=== PATIENT | female | born 1990 | race Caucasian/White ===

== ENCOUNTER 2018-10-27 16:42 | Emergency (ER) | payer OTHER ==
[2018-10-27 17:15] LABS: BASOPHILS % (AUTO) 0.4 %; EOSINOPHILS % (AUTO) 0.3 %; HGB - HEMOGLOBIN 13.7 g/dL (12.0-16.0); LYMPHOCYTES # (AUTO) 1.6 10^3/uL (1.5-3.5); MEAN CORPUSCULAR HEMOGLOBIN 31.4 pg (27.0-31.0); MEAN PLATELET VOLUME 9.1 fL (7.9-10.8); MONOCYTES # (AUTO) 0.5 10^3/uL (0.0-1.0); MONOCYTES % (AUTO) 5.7 %; NEUTROPHILS # (AUTO) 7.4 10^3/uL (1.5-6.6); NEUTROPHILS % (AUTO) 76.6 %; PLT - PLATELET COUNT 175 10^3/uL (130-450); RED BLOOD COUNT 4.38 10^6/uL (4.20-5.40); RED CELL DISTRIBUTION WIDTH 13.1 % (12.0-15.0); WHITE BLOOD COUNT 9.6 x10^3/uL (4.8-10.8)
[2018-10-27 17:28] LABS: ALBUMIN 3.8 g/dL (3.2-5.5); BILIRUBIN,TOTAL 0.7 mg/dL (0.2-1.0); CALCIUM 8.6 mg/dL (8.5-10.3); TOTAL PROTEIN 7.7 g/dL (6.7-8.2)
[2018-10-27] MEDS ORDERED: HYDROmorphone 1 MG/ML CARPUJECT IVP STA (17:45)
[2018-10-27] MEDS ORDERED: KETOROLAC 30 MG/ML VIAL IVP STA (17:45)
[2018-10-27] MEDS ORDERED: ONDANSETRON 4 MG/2 ML VIAL IVP STA (17:45)
[2018-10-27 17:46] LABS: BILIRUBIN,URINE NEGATIVE (NEGATIVE); GLUCOSE, URINE (UA) NEGATIVE (NEGATIVE); KETONES,URINE (UA) NEGATIVE (NEGATIVE); LEUKOCYTE ESTERASE, URINE TRACE (NEGATIVE); NITRITE,URINE NEGATIVE (NEGATIVE); OCCULT BLOOD,URINE MODERATE (NEGATIVE); PROTEIN,URINE NEGATIVE (NEGATIVE); UROBILINOGEN,URINE 0.2 (NORMAL) E.U./dL (NORMAL)
--- NOTE | 2018-10-27 17:46 | ED Physician Documentation ---
PD HPI ABD PAIN - Stated complaint Stated Complaint: ABDOMINAL PX - Chief complaint Chief Complaint: Abd Pain - History obtained from History obtained from: Patient - History of Present Illness Timing - onset: Today (This is a 27-year-old woman who is 3 weeks from her third child who developed sudden onset epigastric and right upper quadrant pain radiating to the mid back today about 2 hours ago with nausea but no vomiting. She had been constipated but had a normal bowel movement earlier today. No history of abdominal surgeries.) Review of Systems Ten Systems: 10 systems reviewed and negative Constitutional: reports: Sweats. denies: Fever, Chills GI: reports: Abdominal Pain, Nausea. denies: Vomiting, Diarrhea PD PAST MEDICAL HISTORY - Past Medical History Past Medical History: No - Past Surgical History Past Surgical History: No - Present Medications Home Medications: Ambulatory Orders Medication Instructions Recorded Confirmed Hydrocodone/Acetaminophen 1 - 2 each PO Q6H PRN #14 tablet 10/27/18 [Hydrocodon-Acetaminophen 5-325] - Allergies Allergies/Adverse Reactions: Allergies Allergy/AdvReac Type Severity Reaction Status Date / Time No Known Drug Allergies Allergy Verified 10/27/18 16:53 - Social History Does the pt have substance abuse?: No - Family History Family history: reports: Non contributory PD ED PE NORMAL - Vitals Vital signs reviewed: Yes - General General: Alert and oriented X 3, No acute distress - HEENT HEENT: PERRL, EOMI - Neck Neck: Supple, no meningeal sign, No bony TTP - Cardiac Cardiac: RRR, No murmur - Respiratory Respiratory: No respiratory distress, Clear bilaterally - Abdomen Abdomen: Other (Tender in the right upper quadrant without guarding or rebound b ut positive Moore sign.) - Back Back: No CVA TTP, No spinal TTP - Derm Derm: Normal color, Warm and dry - Extremities Extremities: No edema - Neuro Neuro: Alert and oriented X 3 - Psych Psych: Normal mood, Normal affect Results - Vitals Vitals: Vital Signs - 24 hr 10/27/18 10/27/18 16:50 19:10 Temperature 36.5 C Heart Rate 67 60 Respiratory 18 18 Rate Blood Pressure 139/66 H 134/78 H O2 Saturation 100 100 Oxygen O2 Source Room air - Labs Labs: Laboratory Tests 10/27/18 10/27/18 10/27/18 17:08 17:08 17:40 WBC 9.6 RBC 4.38 Hgb 13.7 Hct 41.6 MCV 95.0 MCH 31.4 H MCHC 33.0 RDW 13.1 Plt Count 175 MPV 9.1 Neut # (Auto) 7.4 H Lymph # (Auto) 1.6 [place] # (Auto) 0.5 Eos # (Auto) 0.0 Baso # (Auto) 0.0 Absolute Nucleated RBC 0.00 Nucleated RBC % 0.0 Sodium 141 Potassium 3.6 Chloride 106 Carbon Dioxide 28 Anion Gap 7.0 BUN 16 Creatinine 1.0 Estimated GFR (MDRD) 68 L Glucose 103 H Calcium 8.6 Total Bilirubin 0.7 AST 57 H ALT 29 Alkaline Phosphatase 105 Total Protein 7.7 Albumin 3.8 Globulin 3.9 Albumin/Globulin Ratio 1.0 Lipase 42 Urine Color YELLOW Urine Clarity CLEAR Urine pH 7.0 Ur Specific Bryson 1.020 Urine Protein NEGATIVE Urine Glucose (UA) NEGATIVE Urine Ketones NEGATIVE Urine Occult Blood MODERATE H Urine Nitrite NEGATIVE Urine Bilirubin NEGATIVE Urine Urobilinogen 0.2 (NORMAL) Ur Leukocyte Esterase TRACE H Urine RBC 0-5 Urine WBC 0-3 Ur Squamous Epith Cells MOD Squamous H Urine Bacteria None Seen Ur Microscopic Review INDICATED Urine Culture Comments NOT INDICATED Urine HCG, Qual NEGATIVE - Rads (name of study) RUQ sono Radiology: EMP read contemporaneously (Gallstones 1.2 cm gallstone in the neck. No pericholecystic fluid. Potential gallbladder wall thickening.) PD MEDICAL DECISION MAKING - ED course ED course: 27-year-old woman presents with signs and symptoms concerning for abdominal pain due to a biliary pathology which is proven on ultrasound. She was pain-free after medications here. Case was discussed by phone with Dr. Rosendo Jones who felt that a trial of outpatient management was appropriate given that she is pain-free and she will follow-up for interval consultation. Departure - Departure Disposition: 01 Home, Self Care Clinical Impression: Biliary colic Condition: Good Record reviewed to determine appropriate education?: Yes Instructions: ED Gallstone W Biliary Colic Follow-Up: Rosendo Jones MD [Provider Admit Priv/Credential] - Tomorrow Prescriptions: Hydrocodone/Acetaminophen [Hydrocodon-Acetaminophen 5-325] 1 - 2 each PO Q6H PRN #14 tablet PRN Reason: pain Comments: Eat a light diet with low fat and protein as discussed. Return if pain is uncontrollable. Call Dr. Jones's office tomorrow to set up a consultation for likely scheduling a cholecystectomy.
[2018-10-27 17:48] LABS: CLARITY,URINE CLEAR (CLEAR); HCG UR QUAL NEGATIVE
[2018-10-27 17:55] LABS: BACTERIA,URINE None Seen /HPF (None Seen); RBC,URINE 0-5 /HPF (0-5); SQUAMOUS EPITHELIAL CELL,UR MOD Squamous (<= Few)
--- NOTE | 2018-10-27 19:09 | Ultrasound Report ---
Reason: RUQ pain Procedure Date: 10/27/2018 Accession Number: [id number] / [id number] Procedure: US - Abdomen Limited CPT Code: FULL RESULT: EXAM: ABDOMEN ULTRASOUND LIMITED, RUQ EXAM DATE: 10/27/2018 06:52 PM. CLINICAL HISTORY: Right upper quadrant pain. COMPARISON: None. TECHNIQUE: Real-time scanning was performed with static images obtained. FINDINGS: Liver: Liver parenchyma is heterogeneous and mildly hyperechoic. No discrete liver masses or intrahepatic bile duct dilation. However, evaluation for masses is limited secondary to the echogenicity. 17.7 cm. Main portal vein flow: Hepatopetal. Gallbladder: Gallstones with gallbladder wall thickening. 1.2 cm gallstone noted in the gallbladder neck. No pericholecystic fluid. Medicated patient without sonographic Moore signs per report. Biliary System: CBD measures 3 mm. No intrahepatic or extrahepatic ductal dilatation. Other: Right kidney measures 11.6 cm. No evidence of hydronephrosis. IMPRESSION: 1. Gallstones or gallbladder wall thickening. Per report, the patient had a negative sonographic Moore's sign. Chronic and acute cholecystitis remain on the differential. 2. Mildly echogenic fatty liver. No mass. RADIA
[2018-10-27 19:10] VITALS: BP 134/78
[2018-10-27] MEDS ORDERED: HYDROcod/ACET 5/325 Prepack 4 PO STA (19:16)
== END 2018-10-27 19:29 | disposition home or self-care (01) ==
LOC: ED 16:42
DX: O90.89 Other complications of the puerperium, not elsewhere classified (principal); K80.50 Calculus of bile duct without cholangitis or cholecystitis without obstruction
CPT/HCPCS: 36415; 76705; 80053; 81001; 81025; 83690; 85025; 96374; 99283; 99284; J1170; 81003; 87086

== ENCOUNTER 2018-11-05 23:07 | Emergency (ER) | payer OTHER ==
[2018-11-05 23:55] LABS: BASOPHILS % (AUTO) 0.4 %; EOSINOPHILS # (AUTO) 0.1 10^3/uL (0.0-0.7); EOSINOPHILS % (AUTO) 0.7 %; HGB - HEMOGLOBIN 13.4 g/dL (12.0-16.0); LYMPHOCYTES # (AUTO) 2.7 10^3/uL (1.5-3.5); LYMPHOCYTES % (AUTO) 30.8 %; MEAN CORPUSCULAR HEMOGLOBIN 32.5 pg (27.0-31.0); MEAN CORPUSCULAR HGB CONC 34.6 g/dL (32.0-36.0); MEAN PLATELET VOLUME 9.9 fL (7.9-10.8); MONOCYTES # (AUTO) 0.5 10^3/uL (0.0-1.0); MONOCYTES % (AUTO) 5.7 %; NEUTROPHILS # (AUTO) 5.4 10^3/uL (1.5-6.6); NEUTROPHILS % (AUTO) 62.4 %; PLT - PLATELET COUNT 146 10^3/uL (130-450); RED BLOOD COUNT 4.12 10^6/uL (4.20-5.40); RED CELL DISTRIBUTION WIDTH 13.1 % (12.0-15.0); WHITE BLOOD COUNT 8.6 x10^3/uL (4.8-10.8)
[2018-11-06 00:09] LABS: ALBUMIN 3.9 g/dL (3.2-5.5); ALBUMIN/GLOBULIN RATIO 1.1 (1.0-2.2); BILIRUBIN,TOTAL 0.6 mg/dL (0.2-1.0); CALCIUM 8.9 mg/dL (8.5-10.3); CREATININE 0.8 mg/dL (0.4-1.0); TOTAL PROTEIN 7.3 g/dL (6.7-8.2)
--- NOTE | 2018-11-06 00:27 | ED Physician Documentation ---
PD HPI ABD PAIN - Stated complaint Stated Complaint: ABDOMINAL PAIN - Chief complaint Chief Complaint: Abd Pain - History obtained from History obtained from: Patient - History of Present Illness Timing - onset: Enter time (21:30), Today Timing - details: Abrupt onset Pain level max: 8 Pain level now: 4 Quality: Pain Location: RUQ, Epigastric Radiation: No: Chest, , Lower back, Left flank, Left shoulder, Right flank, Right shoulder, Upper back Improved by: Laying still, Meds Worsened by: Eating Associated symptoms: No: Fever, Nausea, Vomiting Similar symptoms before: Diagnosis (biliary coilc) Recently seen: Emergency Dept - Additional information Additional information: T+R from this ED 10/27/18 for biliary colic, scheduled 11/18 for cholecystectomy. tonight she had recurrence of RUQ and epigastric pain while eating a sloppy bailey (turkey). took one half tablet vicodin and this has affected some relief en route. she had only one other episode of this pain since she was discharged 10/27, and that episode resolved with 1 tab vicodin. Review of Systems Constitutional: reports: Fever, Chills, Weight Loss, Sweats Cardiac: reports: Reviewed and negative Respiratory: reports: Reviewed and negative GI: reports: Abdominal Pain. denies: Abdominal Swelling, Nausea, Vomiting, Constipation, Diarrhea : denies: Dysuria, Frequency PD PAST MEDICAL HISTORY - Past Medical History Cardiovascular: None Respiratory: None Endocrine/Autoimmune: None GI: Cholelithiasis : None HEENT: Chronic vision loss Psych: None Musculoskeletal: Chronic back pain Derm: None - Past Surgical History Past Surgical History: No - Present Medications Home Medications: Ambulatory Orders Medication Instructions Recorded Confirmed Pnv No.121/Iron/Folic Acid 1 each PO DAILY 11/05/18 11/05/18 [ Multivitamin Tablet] - Allergies Allergies/Adverse Reactions: Allergies Allergy/AdvReac Type Severity Reaction Status Date / Time No Known Drug Allergies Allergy Verified 10/27/18 16:53 - Social History Does the pt smoke?: No Smoking Status: Never smoker Does the pt drink ETOH?: No Does the pt have substance abuse?: No - Immunizations Immunizations are current?: Yes PD ED PE NORMAL - Vitals Vital signs reviewed: Yes - General General: Alert and oriented X 3, No acute distress, Well developed/nourished - Neck Neck: Supple, no meningeal sign - Cardiac Cardiac: RRR, No murmur, No gallop, No rub - Respiratory Respiratory: No respiratory distress, Clear bilaterally - Abdomen Abdomen: Normal bowel sounds, Soft, Non tender, Non distended, No organomegaly - Back Back: No CVA TTP - Derm Derm: Normal color, Warm and dry, No rash Results - Vitals Vitals: Vital Signs - 24 hr 11/05/18 11/06/18 23:15 01:28 Temperature 36.5 C Heart Rate 70 72 Respiratory 18 15 Rate Blood Pressure 110/47 L 118/66 O2 Saturation 98 99 Oxygen O2 Source Room air - Labs Labs: Laboratory Tests 11/05/18 11/05/18 23:45 23:45 WBC 8.6 RBC 4.12 L Hgb 13.4 Hct 38.7 MCV 94.0 MCH 32.5 H MCHC 34.6 RDW 13.1 Plt Count 146 MPV 9.9 Neut # (Auto) 5.4 Lymph # (Auto) 2.7 [place] # (Auto) 0.5 Eos # (Auto) 0.1 Baso # (Auto) 0.0 Absolute Nucleated RBC 0.01 Nucleated RBC % 0.1 Sodium 139 Potassium 3.6 Chloride 102 Carbon Dioxide 27 Anion Gap 10.0 BUN 18 Creatinine 0.8 Estimated GFR (MDRD) 87 L Glucose 107 H Calcium 8.9 Total Bilirubin 0.6 AST 47 H ALT 54 Alkaline Phosphatase 112 Total Protein 7.3 Albumin 3.9 Globulin 3.4 Albumin/Globulin Ratio 1.1 Lipase 43 PD MEDICAL DECISION MAKING - ED course Complexity details: reviewed results, re-evaluated patient, considered differential, d/w patient ED course: patient reported good relief with IM toradol. d/w Dr. Wilkerson: will see patient in outpatient setting. Departure - Departure Disposition: 01 Home, Self Care Clinical Impression: Biliary colic Condition: Good Instructions: ED Gallstone W Biliary Colic Comments: Follow up with the surgeon as scheduled. Discharge Date/Time: 11/06/18 02:04
[2018-11-06] MEDS ORDERED: KETOROLAC 60 MG/2 ML VIAL IM STA (00:45)
[2018-11-06 01:44] VITALS: BP 118/66
== END 2018-11-06 02:04 | disposition home or self-care (01) ==
LOC: ED 23:07
DX: K80.50 Calculus of bile duct without cholangitis or cholecystitis without obstruction (principal)
CPT/HCPCS: 36415; 80053; 83690; 85025; 96372; 99283

== ENCOUNTER 2018-11-11 11:54 | Day surgery (SDC) | payer OTHER ==
[2018-11-11 12:33] LABS: HCG UR QUAL NEGATIVE
[2018-11-11] MEDS ORDERED: LACTATED RINGERS 1,000 ML IV ONE ×3 (12:45→16:18)
[2018-11-11] MEDS ORDERED: ceFAZolin 3 GM in SODIUM CHLORIDE 0.9% 100ML 100 ML IV ONE (13:00)
--- NOTE | 2018-11-11 13:57 | ANESTHESIA ---
Pre-Anesthesia VS, & Labs - Diagnosis Symptomatic cholelithiasis - Procedure laparoscopic cholecystectomy w/poss IOC. Excision lesion, abd wall skin Vital Signs: Temp Pulse Resp BP Pulse Ox 36.8 C 54 L 15 106/61 98 11/11/18 12:17 11/11/18 12:17 11/11/18 12:17 11/11/18 12:17 11/11/18 12:17 Height 6 ft Weight (kg) 135.3 kg Body Mass Index 40.8 - NPO >8 hours - Is Patient ?: No (-HCG 11/11/18) - Lab Results Lab results reviewed: Yes Home Medications and Allergies Home Medications: Ambulatory Orders Pnv No.121/Iron/Folic Acid [ Multivitamin Tablet] 1 each PO DAILY 11/05/18 Hydrocodone/Acetaminophen [Vicodin 5-300 mg Tablet] 1 each PO 11/08/18 Pnv No.121/Iron/Folic Acid [ Multivitamin Tablet] 1 each PO DAILY 11/05/18 Hydrocodone/Acetaminophen [Vicodin 5-300 mg Tablet] 1 each PO 11/08/18 Allergies/Adverse Reactions: Allergies Allergy/AdvReac Type Severity Reaction Status Date / Time No Known Drug Allergies Allergy Verified 11/08/18 13:11 Anes History & Medical History - Anesthetic History Anesthesia Complications: reports: No previous complications Family history of Anesthesia Complications: Denies Family history of Malignant Hyperthermia: Denies - Medical History Cardiovascular: reports: None Pulmonary: reports: None Gastrointestinal: reports: Cholelithiasis Urinary: reports: None Musculoskeletal: reports: Chronic back pain Endocrine/Autoimmune: reports: None Skin: reports: None Smoking Status: Never smoker Other Past Medical History: 5 weeks post delivery. Currently , medication safety discussed with pt. Exam General: Alert, Oriented x3, Cooperative Dental: WNL Mouth Openin Fingerbreadth Mallampati classification: III Thyromental Distance: 4-6 cm Respiratory: Lungs clear, Normal breath sounds Cardiovascular: Regular rate Neurological: Normal speech Mental/Cognitive Status: Alert/Oriented X3 Cognitive Status: Within normal limits Plan Anesthesia Type: General Consent for Procedure(s) Verified and Reviewed: Yes Code Status: Attempt Resuscitation ASA classification: 2-Mild systemic disease Is this case an emergency?: No
[2018-11-11] MEDS ORDERED: IOTHALAMATE MEGLUMINE 50 ML VIAL ONE (14:05)
[2018-11-11] MEDS ORDERED: BUPIVACAINE 0.5%-EPI 1:200000 PF 30 ML VIAL ONE (14:36)
[2018-11-11] MEDS ORDERED: BUPIVACAINE 0.5%-EPI 1:200000 PF 10 ML VIAL SUBQ ONE (15:36)
[2018-11-11] MEDS ORDERED: fentaNYL 250 MCG/5 ML VIAL IVP ONE (16:24)
[2018-11-11] MEDS ORDERED: ROCURONIUM 50 MG/5 ML VIAL IVP ONE (16:24)
[2018-11-11] MEDS ORDERED: KETOROLAC 30 MG/ML VIAL IVP ONE (16:24)
[2018-11-11] MEDS ORDERED: PROPOFOL 200 MG/20 ML VIAL IVP ONE (16:24)
[2018-11-11] MEDS ORDERED: HYDROmorphone 1 MG/ML CARPUJECT IVP ONE (16:24)
[2018-11-11] MEDS ORDERED: NEOSTIGMINE 1 MG/1 ML 10 ML MDV IVP ONE (16:24)
[2018-11-11] MEDS ORDERED: LIDOCAINE-MPF 2% 5 ML VIAL IM ONE (16:24)
[2018-11-11] MEDS ORDERED: DEXAMETHASONE 4 MG/ML VIAL IVP ONE (16:24)
[2018-11-11] MEDS ORDERED: MIDAZOLAM 2 MG/2 ML VIAL IVP ONE (16:24)
[2018-11-11] MEDS ORDERED: GLYCOPYRROLATE 1 MG/5 ML VIAL IVP ONE (16:24)
[2018-11-11] MEDS ORDERED: ONDANSETRON 4 MG/2 ML VIAL IVP ONE (16:24)
[2018-11-11] MEDS ORDERED: IBUPROFEN 600 MG TABLET PO PRN (16:27)
[2018-11-11] MEDS ORDERED: ONDANSETRON 4 MG/2 ML VIAL IVP PRN (16:27)
[2018-11-11] MEDS ORDERED: ACETAMINOPHEN 325 MG TABLET PO PRN (16:27)
[2018-11-11] MEDS ORDERED: oxyCODONE 5 MG TABLET PO PRN (16:27)
[2018-11-11] MEDS ORDERED: MEPERIDINE 50 MG/ML VIAL ONE (16:44)
[2018-11-11] MEDS ORDERED: ACETAMINOPHEN 1,000 MG/100 ML 100 ML IV ONE (16:59)
[2018-11-11 17:58] VITALS: BP 128/74
--- NOTE | 2018-11-12 02:38 | OPERATIVE REPORT ---
DATE OF SERVICE: 11/11/2018 Physician: Rosendo Jones MD PREOPERATIVE DIAGNOSES 1. Symptomatic gallbladder disease. 2. Symptomatic skin lesion of the abdominal wall. POSTOPERATIVE DIAGNOSES 1. Symptomatic gallbladder disease. 2. Symptomatic skin lesion of the abdominal wall. PROCEDURE PERFORMED 1. Laparoscopic cholecystectomy. 2. Excision of skin lesion from the anterior abdominal wall. ANESTHESIA: General endotracheal by Sun Ravi CRNA. SURGEON: Rosendo Jones MD. ESTIMATED BLOOD LOSS: 10 mL COMPLICATIONS: None. FINDINGS: Laparoscopy revealed extensive pericholecystic adhesions. The gallbladder wall was chroni sachi thickened. The cystic duct was of normal caliber. The visualized portions of the liver, stoma ch, small and large bowel were otherwise within normal limits. Following resection, the gallbladder was seen to contain numerous, yellow, mulberry type, mixed cholesterol stones measuring from 3 up to 12 mm in size. A pedunculated skin lesion was present in the left lower quadrant abdominal wall, wit h greatest diameter being 3 cm. This was a medium pigmented nodular polypoid lesion. INDICATIONS: Patient is a 27-year-old woman with recent onset of right upper quadrant pain in a post state. Evaluation revealed the presence of cholelithiasis. She was felt to be suffering from symptomatic cholelithiasis, including likely biliary colic and/or subacute calculous cholecystitis, and was advised to undergo a laparoscopic cholecystectomy. She also complained of a several year his tory of an enlarging skin lesion on her left lower quadrant abdominal wall. Examination revealed a 3 cm polypoid-shaped, pedunculated, nodular lesion in the left lower quadrant that was mildly pigmente d. She was advised to undergo excisional biopsy of this lesion as well. TECHNIQUE: After informed consent, patient was taken to the operating room, where she was placed und er general endotracheal anesthesia. Preoperative preparation included the application of sequential calf compression boots, administration of 3 grams of cefazolin intravenously within an hour of the in cision. Her abdominal wall was prepared with ChloraPrep solution and draped in the usual sterile fas hion. A 15 blade was used to excise the skin lesion, left lower quadrant, making an elliptical incis ion around the base of the lesion, carrying it down into subcutaneous fat. The tissue was then sent for pathologic evaluation. Hemostasis achieved with electrocautery and then wound closure was accomp lished with 4-0 Monocryl subcuticular skin closure, followed by Dermabond. Attention was then turned to performing the cholecystectomy. A transverse incision was made along th e inferior edge of the umbilicus and carried down through the layers of the abdominal wall until the peritoneum was identified and entered sharply. A 10 mm Carlie cannula was inserted. Pneumoperitoneu m was achieved with carbon dioxide. A 10 mm, 30-degree Arion telescope was inserted. Laparoscopy was carried out with findings noted above. Three 5 mm ports were placed in the right upper quadrant. Instruments were passed. The gallbladder was exposed, grasped and retracted in the cephalad and la teral direction. Extensive pericholecystic adhesions were lysed with electrocautery, blunt dissectio n, exposing the cystic triangle of Calot. This region was carefully dissected using the hook electro de and electrocautery, isolating the cystic duct and cystic artery adjacent to the gallbladder. The critical view of safety was obtained. The cystic duct was triply clipped distally, doubly proximally and divided between the cystic arteries, doubly clipped proximally and distally, and divided between . The gallbladder was excised from the liver bed using electrocautery for dissection and hemostasis. It was detached intact, placed in the organ retrieval bag, extracted and opened on the side table w ith findings as noted above, and then the tissue sent for pathologic evaluation. After hemostasis had been ensured, the right upper quadrant was copiously irrigated with saline solut ion, following which instruments and cannulas were removed under direct vision. Pneumoperitoneum was allowed to escape and the incisions were closed in layers using continuous 0 Vicryl, reapproximated in the midline fascia at the umbilicus, followed by 4-0 Monocryl subcuticular skin closure for all th e port sites, followed by Dermabond; 30 mL of 0.5% Marcaine with epinephrine was infiltrated into the incision to assist in postoperative analgesia. Anesthesia was terminated and patient was transferre d to the recovery room in satisfactory condition. Sponge and needle counts were correct x2. No drai ns were used. TD: 11/11/2018 17:12
== END 2018-11-11 18:17 | disposition home or self-care (01) ==
LOC: SDS 11:54
PROVIDERS: ATTEND Internal Medicine Gastroenterology
PROC: 0FT44ZZ Resection of Gallbladder, Percutaneous Endoscopic Approach (ICD-10-PCS; principal; 2018-11-11 13:00)
PROC: 0HB7XZZ Excision of Abdomen Skin, External Approach (ICD-10-PCS; 2018-11-11 13:00)
DX: O99.63 Diseases of the digestive system complicating the puerperium (principal); K80.10 Calculus of gallbladder with chronic cholecystitis without obstruction; L98.8 Other specified disorders of the skin and subcutaneous tissue; D64.9 Anemia, unspecified; E66.01 Morbid (severe) obesity due to excess calories; Z68.41 Body mass index [BMI] 40.0-44.9, adult; Z87.891 Personal history of nicotine dependence
CPT/HCPCS: 11404; 47562; 81025; J0131; J1170; J2175; J3010; J7120